=== PATIENT | female | born 1995 | race Caucasian/White ===

== ENCOUNTER 2017-09-04 12:18 | Outpatient (CLI) | payer SELFPAY ==
[2017-09-04] MEDS ORDERED: LACTATED RINGERS 1,000 ML IV SCH (12:45)
[2017-09-04 13:14] VITALS: BP 120/76; PULSE 96; RESP 16; TEMP 97.7
[2017-09-04 13:27] LABS: Appearance,Urine Cloudy (Clear); Bilirubin,Urine Negative (Negative); Blood,Urine Trace (Negative); Color,Urine Yellow; Glucose,Urine (UA) Negative (Negative); Ketones,Urine Negative (Negative); Leukocyte Esterase,Urine Large (Negative); Nitrite,Urine Negative (Negative); PH, Urine 7.5 (5.0-8.0); Protein,Urine Trace (Negative); RBC,Urine 16 /hpf (0-5); Specific Gravity,Urine 1.012 (1.001-1.035); Squamous Epithelial Cell,Urine 19 /hpf (0-4); Urobilinogen,Urine <2.0 mg/dL (<2.0); WBC,Urine 110 /hpf (0-5)
--- NOTE | 2017-09-04 13:55 | US ---
EXAMINATION TYPE: US OB >= 14 wk fetus DATE OF EXAM: 09/04/2017 COMPARISON: None CLINICAL HISTORY: placental location, cervical length, gui, efw Cramping, spotting TECHNIQUE: Transabdominal (TA) GESTATIONAL AGE / DATING Physician Established: (26 weeks/0 days) EDC: 12/11/2017 Dates by LMP: (26 weeks/0 days) EDC: 12/11/2017 Dates by First Scan: No previous this is first scan Dates by Current Scan: (26 weeks/4 days) EDC: 12/07/2017 Beta HCG (if available): Not available at this time SURVEY IUP: Single PLACENTA: Fundal PREVIA: No Previa GUI: 18.9 cm Normal CERVICAL LENGTH (transabdominal: norm > 3.0cm): 3.7 cm BIOMETRY PRESENTATION: Breech LIE: Longitudinal BPD: 6.7 cm 26 weeks / 6 days HC: 24.57 cm 26 weeks / 5 days AC: 22.96 cm 27 weeks / 2 days FL: 5.0 cm 26 weeks / 6 days ESTIMATED WEIGHT IN GRAMS: 1023 grams ESTIMATED WEIGHT IN LBS/OZ: 2lbs. 4 oz. WEIGHT PERCENTAGE BASED ON ESTABLISHED DATES: 82.7 % HC/AC: 1.07 Normal FL/AC: 21.7 Normal HEART RATE: 140 bpm RHYTHM: Normal Live IUP, measurements consistent with dates. IMPRESSION: Single live intrauterine with a calculated sonographic age of 26 weeks and 4 days and estim ated date of delivery of 12/07/2017, concordant with menstrual age. Cervical length is within normal li mits as is GUI.
--- NOTE | 2017-09-05 13:49 | P.MSEPDOC ---
Presenting Problems - Arrival Data Date of Arrival on Unit: 09/04/17 Time of Arrival on Unit: 12:00 Mode of Transport: Portable - Complaint OB-Reason for Admission/Chief Complaint: Vaginal Bleeding Medical History - Information : 1 Para: 0 Term: 0 : 0 Abortions: Spontaneous or Elective: 0 Number of Living Children: 0 - Gestational Age Gestational Age by MELL (wks/days): 26 Weeks and 0 Days - History Complications: No Care Review of Systems - Review of Systems Constitutional: No problems Breast: No problems ENT: No problems Cardiovascular: No problems Respiratory: No problems Gastrointestinal: No problems Genitourinary: No problems Musculoskeletal: No problems Neurological: No problems Skin: No problems Vital Signs - Temperature Temperature: 97.7 F Temperature Source: Temporal Artery Scan - Pulse Right Sitting Brachial Pulse Rate: 96 Pulse Assessment Method: Automatic Cuff - Respirations Respiratory Rate: 16 Oxygen Delivery Method: Room Air O2 Sat by Pulse Oximetry: 99 - Blood Pressure Right Arm Sitting Blood Pressure: 120/76 Blood Pressure Mean: 90 Blood Pressure Source: Automatic Cuff Medical Screen Scoring (Pre) - Cervical Exam Dilation: Exam Deferred - Uterine Contractions Frequency: N/A Duration: N/A Intensity: N/A - Maternal Vital Signs Maternal Temperature: N/A Maternal Blood Pressure: N/A Signs of Preeclampsia: N/A Maternal Respirations: N/A - Pain Assessment Pain Scale Used: Numeric (1 - 10) Pain Intensity: 0 - Maternal Trauma Maternal Trauma: N/A - Assessment Baseline FHR: 150 Heart Rate - NICHD Category: Category I (Normal) = 0 Position: N/A Station: N/A - Total Score Total Score (Pre): 0 - Level of Risk Level of Risk: N/A Physician Notification (Pre) - Physician Notified Physician Notified Date: 09/04/17 Physician Notified Time: 14:00 Physician/Practitioner Notifed:: dr savage Spoke With: dr savage New Order Received: Yes (discharge) - Notification Comment Comment: orders for u/s, ua, IV therapy Disposition - Disposition OB Disposition: Discharge to home Discharge Date: 09/04/17 Discharge Time: 14:15 I agree with the RN Medical Screening Exam: Yes Risk & Benefit of care provided described in d/c instruction: Yes Diagnosis: SPOTTING COMPLICATING , SECOND TRIMESTER
== END 2017-09-04 14:15 | disposition home or self-care (01) ==
LOC: FBPOP 12:18
PROVIDERS: ATTEND Obstetrics & Gynecology Obstetrics
DX: O26.852 Spotting complicating pregnancy, second trimester (principal); Z3A.26 26 weeks gestation of pregnancy
CPT/HCPCS: 76805; 81001; 87077; 87086; 87186; 96360; 99214

== ENCOUNTER 2022-09-03 10:41 | Emergency (ER) | payer SELFPAY ==
[2022-09-03] MEDS ORDERED: DIPH,PERTUS(ACELL)TETVAC-LF 0.5 ML VIAL IM ONE (11:41)
[2022-09-03] MEDS ORDERED: LIDOCAINE 1% INJ 10MG/ML (30 ML VIAL-PF) SQ ONE (11:41)
--- NOTE | 2022-09-03 12:17 | XR ---
EXAMINATION TYPE: XR wrist complete RT DATE OF EXAM: 09/03/2022 CLINICAL HISTORY: multiple lacerations by glass TECHNIQUE: Frontal, lateral and oblique images of the right wrist are obtained. COMPARISON: None. FINDINGS: There is no acute fracture/dislocation evident. The joint spaces appear within normal limits. There is radiopaque foreign body ventral soft tissues at the level of the distal radius measuring 1.3 cm in length by 3.5 mm AP dimension felt to be compatible with glass foreign body. No additional foreign b jett seen. IMPRESSION: There is radiopaque foreign body ventral soft tissues at the level of the distal radius measuring 1.3 cm in length by 3.5 mm AP dimension felt to be compatible with glass foreign body.
--- NOTE | 2022-09-03 12:18 | XR ---
EXAMINATION TYPE: XR elbow complete RT DATE OF EXAM: 09/03/2022 CLINICAL HISTORY: pain TECHNIQUE: Frontal, lateral and oblique images of the right elbow are obtained. COMPARISON: None. FINDINGS: There is no acute fracture/dislocation evident of the elbow. No abnormal fat pad signs ar e seen. The overlying soft tissue appears unremarkable. IMPRESSION: There is no acute fracture or dislocation of the elbow. ICD 10 NO FRACTURE, INITIAL EVALUATION
--- NOTE | 2022-09-03 14:04 | ED ---
General Adult HPI - General Chief complaint: Wound/Laceration Stated complaint: rt hand/arm laceration Time Seen by Provider: 09/03/22 11:33 Source: patient, RN notes reviewed Mode of arrival: ambulatory Limitations: no limitations - History of Present Illness Initial comments: 27-year-old female with no significant past medical history presents to the emergency department with a chief complaint of laceration. Patient reports that she punched through a glass prior to arrival. She initially. She denies numbness, tingling, weakness to the extremity. Denies anticoagulant use. She believes that there is a piece of glass near her wrist. - Related Data Home Medications Medication Instructions Recorded Confirmed Pnv,Calcium 72/Iron/Folic Acid 1 tab PO DAILY 09/04/17 09/04/17 [ Plus Tablet] Allergies Allergy/AdvReac Type Severity Reaction Status Date / Time latex Allergy Swelling Verified 09/03/22 11:14 Review of Systems ROS Statement: Those systems with pertinent positive or pertinent negative responses have been documented in the HPI. ROS Other: All systems not noted in ROS Statement are negative. Past Medical History Past Medical History: No Reported History History of Any Multi-Drug Resistant Organisms: None Reported Past Surgical History: No Surgical Hx Reported Past Psychological History: No Psychological Hx Reported Smoking Status: Current every day smoker Past Alcohol Use History: Rare Past Drug Use History: Marijuana General Exam - General Exam Comments Initial Comments: General: Alert, in no acute distress Head: atraumatic normocephalic. Eyes PERRL, EOMI intact, mucous membranes moist Respiratory: Lungs clear to auscultation bilaterally Cardiovascular: Rate regular rate and rhythm Abdominal: Soft without guarding or rebound Extremities: Normal inspection with full range of motion and normal capillary refill, 4 cm laceration to medial condyle region of right elbow full range of motion mild tenderness just distal MDI remains intact. 2+ radial pulses. Neuroogic: alert and oriented 3, CN II-XII intact, able to ambulate with steady gait Skin: warm dry and intact with normal color Limitations: no limitations Course Vital Signs 09/03/22 09/03/22 11:12 14:22 Temperature 98.4 F 97.6 F Pulse Rate 110 H 71 Respiratory 18 16 Rate Blood Pressure 112/67 O2 Sat by Pulse 100 98 Oximetry - Reevaluation(s) Reevaluation #1: 05/30/23 19:26 foreign body successfully removed. Procedures - Laceration Laceration #1 Consent Obtained: verbal consent Indication: laceration Site: other (Right elbow) Size (cm): 4 Description: linear Depth: simple, single layer Anesthetic Used: lidocaine 1% Anesthesia Technique: local infiltration Amount (mls): 10 Pre-repair: wound explored, irrigated extensively Type of Sutures: vicryl Size of Sutures: 5-0 Number of Sutures: 7 Technique: simple, interrupted Complications: pain, bleeding, nerve injury Patient Tolerated Procedure: well, no complications Additional Comments: Distal NVI remains intact post suture placement Medical Decision Making - Medical Decision Making Was pt. sent in by a medical professional or institution (, PA, [employer], urgent care, hospital, or alf...) When possible be specific @ -[No] Did you speak to anyone other than the patient for history (EMS, parent, family, police, friend...)? What history was obtained from this source @ -[No] Did you review nursing and triage notes (agree or disagree)? Why? @ -[I reviewed and agree with nursing and triage notes] Were old charts reviewed (outside hosp., previous admission, EMS record, old EKG, old radiological studies, urgent care reports/EKG's, alf records)? Report findings @ -[No old charts were reviewed] Differential Diagnosis (chest pain, altered mental status, abdominal pain women, abdominal pain men, vaginal bleeding, weakness, fever, dyspnea, syncope, headache, dizziness, GI bleed, back pain, seizure, CVA, palpatations, mental health, musculoskeletal)? @ -[not applicable] EKG interpreted by me (3pts min.). @ -[As above] X-rays interpreted by me (1pt min.). @ End x-ray reveals large foreign body in the distal forearm CT interpreted by me (1pt min.). @ -[None done] U/S interpreted by me (1pt. min.). @ -[None done] What testing was considered but not performed or refused? (CT, X-rays, U/S, labs)? Why? @ -[None] What meds were considered but not given or refused? Why? @ -[None] Did you discuss the management of the patient with other professionals (professionals i.e. Dr., PA, [employer], lab, RT, psych nurse, perinatal social worker, straw hat brim raiser operator, teacher, airframe technical officer, family service caseworker)? Give summary @ -[No] Was smoking cessation discussed for >3mins.? @ -[No] Was critical care preformed (if so, how long)? @ -[No] Were there social determinants of health that impacted care today? How? (Homelessness, low income, unemployed, alcoholism, drug addiction, transportation, low edu. Level, literacy, decrease access to med. care, alf, rehab)? @ -[No] Was there de-escalation of care discussed even if they declined (Discuss DNR or withdrawal of care, Hospice)? DNR status @ -[No] What co-morbidities impacted this encounter? (DM, HTN, Smoking, COPD, CAD, Cancer, CVA, ARF, Chemo, Hep., AIDS, mental health diagnosis, sleep apnea, morbid obesity)? @ -[None] Was patient admitted / discharged? Hospital course, mention meds given and route, prescriptions, significant lab abnormalities, going to OR and other pertinent info. @ -Discharged. This is a 27-year-old female who presents the emergency department with laceration. Patient had a thorough history and physical exam performed. Right forearm 3 cm laceration to the medial epicondyle. Limited range of motion of the right wrist secondary to pain as there is a foreign body. Foreign body successfully removed. Wrist and arm ran ge of motion remains intact. Patient had 9 sutures placed on the ED for which she tolerated well. Return precautions were discussed at length. She was discharged in stable condition. Case discussed with Dr. Vieira who agrees with plan of care. Undiagnosed new problem with uncertain prognosis? @ -[No] Drug Therapy requiring intensive monitoring for toxicity (Heparin, Nitro, Insulin, Cardizem)? @ -[No] Were any procedures done? @ -[No] Diagnosis/symptom? @ -laceration Acute, or Chronic, or Acute on Chronic? @ -Acute Uncomplicated (without systemic symptoms) or Complicated (systemic symptoms)? @ -Uncomplicated Side effects of treatment? @ -[No] Exacerbation, Progression, or Severe Exacerbation? @ -[No] Poses a threat to life or bodily function? How? (Chest pain, [place], [place], pneumonia, PE, COPD, DKA, ARF, appy, cholecystitis, CVA, Diverticulitis, Homicidal, Suicidal, threat to staff... and all critical care pts) @ -Low likelihood ] Disposition Clinical Impression: Laceration Disposition: HOME SELF-CARE Condition: Stable Instructions (If sedation given, give patient instructions): Care For Your Stitches (DC), Laceration (ED) Additional Instructions: Please return to the nearest emergency department in 7-10 days for suture removal Please return to the nearest emergency department symptoms worsen or persist Is patient prescribed a controlled substance at d/c from ED?: No Referrals: None,Stated [Primary Care Provider] - 1-2 days Time of Disposition: 14:04
[2022-09-03 14:24] VITALS: BP 112/67; PULSE 71; RESP 16; TEMP 97.6
== END 2022-09-03 15:01 | disposition home or self-care (01) ==
LOC: EC 10:41
DX: S61.411A Laceration without foreign body of right hand, initial encounter (principal); F12.90 Cannabis use, unspecified, uncomplicated; F17.200 Nicotine dependence, unspecified, uncomplicated; Z91.040 Latex allergy status; Z23 Encounter for immunization; W25.XXXA Contact with sharp glass, initial encounter
CPT/HCPCS: 73080; 73110; 90715; 99283; 90471; 12002; J2001